=== PATIENT | male | born 1940 | race Caucasian/White ===

== ENCOUNTER 2018-12-17 18:41 | Inpatient (IN) | payer OTHER ==
[~2018-12-17] VITALS: Ht 180.3 cm; Wt 75.4 kg
[2018-12-17] MEDS ORDERED: FLOMAX0.4 MG PO (18:46)
[2018-12-17] MEDS ORDERED: TIMOLOL-BRIMONI-5 ML OPHTHALMIC (18:46)
[2018-12-17 20:22] LABS: HEMATOCRIT 43.2 % (42.0-52.0); HEMOGLOBIN 14.7 gm/dL (14.0-18.0); MCH 31.4 pg (26.0-34.0); MCHC 34.1 g/dL (28.0-37.0); MCV 92.2 fL (80.0-100.0); PLATELET COUNT 199 thou/uL (150-400); RBC 4.68 mil/uL (4.50-6.00); RDW 12.9 % (10.5-14.5)
[2018-12-17 20:27] LABS: CALCIUM 9.5 mg/dL (8.5-10.1); CREATININE 0.8 mg/dL (0.7-1.3); POTASSIUM 3.6 mmol/L (3.5-5.1)
[2018-12-17 20:34] LABS: ALBUMIN 3.5 g/dL (3.4-5.0); DIRECT BILIRUBIN 0.5 mg/dL (<0.1-0.3); TOTAL BILIRUBIN 1.6 mg/dL (<0.1-1.0); TOTAL PROTEIN 7.8 g/dL (6.4-8.2)
[2018-12-17 20:38] LABS: APTT 29.2 Seconds (24.5-32.8); PROTIME 10.5 Seconds (9.3-11.4)
[2018-12-17 21:03] LABS: ABSOLUTE NEUTROPHILS 4.6 thou/uL (1.4-8.2); ANISOCYTOSIS 1+
[2018-12-17 21:12] LABS: URINE CLARITY CLOUDY; URINE COLOR ORANGE
[2018-12-17 21:18] LABS: BACTERIA-REFLEX >30 Many /HPF (None Seen); CASTS None Seen /LPF (None Seen); CRYSTALS None Seen /LPF (None Seen); SQUAMOUS None Seen /LPF (0-3); URINE RBC 0-2 Rare /HPF (0-2); URINE WBC-REFLEX >25 Many /HPF (0-5); YEAST-REFLEX Present (None Seen)
[2018-12-17 22:42] VITALS: BP 119/81
[2018-12-17 23:00] VITALS: BP 142/87
[2018-12-18] VITALS (11 sets, daily range): BP systolic 131–156; BP diastolic 71–89
--- NOTE | 2018-12-18 03:22 | NUR ---
PT ARRIVED ON THE UNIT @2330 FROM THE ER. A&O X4 STATED HAVING BURNING WITH URINATION AND OLIGURIA. UP AD ARISTIDES TO THE BATHROOM. IV IN LFT WRIST INTACT FLUIDS AND ABX INFUSING. SCD'S ON BOTH LOWER EXT AND CALL LIGHT WITHIN REACH. PT NPO AFTER MIDNIGHT WILL CONT TO MONITOR TILL EOS.
--- NOTE | 2018-12-18 12:20 | NUR ---
ASSESSMENT-PT LIVES AT HOME WITH HIS WHO IS 76 YEARS OLD AND INDEPENDENT. BOTH DRIVE. THEY HAVE 3 KIDS, 2 ARE IN THE AREA AND THEY HAVE 9 GRANDKIDS. PT VOICES NO CONCERNS RELATED TO DC. GRANDKIDS ASSIST WITH SOME OF THE HOUSEHOLD DUTIES. PT SAYS THEY ARE VERY INDEPENDENT FOR THEIR AGE. FOLLOWING TO ASSIST WITH DC PLANNING.
--- NOTE | 2018-12-18 19:53 | NUR ---
Assumed care of pt at 0700. Pt a&ox4. IVF and antibiotics infusing. Pt went to IR for CT guided abscess drainage. Pt 2 hours bedrest after procedure. Pt got out of bed 1.5 hours after getting to floor. Bed alarm went off, when staff went in the room pt was up. Pt educated. SIMONE drain intact. Pain controlled. Vital signs stable. Family at bedside at the moment. Report given to tyree branch.
[2018-12-19 03:16] VITALS: BP 134/60
--- NOTE | 2018-12-19 06:21 | NUR ---
PT BEEN ALERT AND ORIENTED. UP AD ARISTIDES IN ROOM.AMBULATING TO THE BATHROOM. VSS.AFEBRILE. SIMONE DRAIN WITH ABOUT 10CC OF SANGUINEOUS OUTPUT. DENIES NAUSEA AND VOMITING. CONTINUES ON IV ABTS AND FLUIDS.NO FURTHER CONCERNS.
[2018-12-19 07:58] VITALS: BP 148/81
--- NOTE | 2018-12-19 12:30 | NUR ---
HAS BEEN UP IN ROOM, AMBULATORY, HE DID SHOWER AND STATED HE FEELS BETTER, ASKING WHAT HE HAS TO DO " A PATIENT" TO GET DISCHARGED, HE DENIES PAIN, HE IS ALERT AND ORIENTED X 4, SIMONE DRAIN IN PLACE, HAS SMALL AMOUNT OF SEROSANGUINOUS FLUID IN BULB. CONTINUE TO MONITOR FOR SAFETY.
[2018-12-19 17:08] VITALS: BP 121/65
--- NOTE | 2018-12-19 19:47 | NUR ---
Patient knocked IV out of wrist, new 20 ga. SL started in left hand, flushes well, x 1 stick. IV fluids and IVPB restarted at this time.
[2018-12-19 20:18] VITALS: BP 122/73
[2018-12-20 03:45] VITALS: BP 129/88; BP 135/6
--- NOTE | 2018-12-20 04:47 | HC ---
[facility] [place] [address] CONSULTATION Name: ANA GARCIA Room #: 426-P ADM IN M.R.#: [id number] Admission: 12/17/18 ������������������ Attend Phys: Peterson Eubanks MD Discharge: ������������������ Date of : 38 Report #: [id number] THIS REPORT FOR: //name// CC: [facility] physician/PCP Peterson Eubanks DATE OF SERVICE: 12/19/2018 INFECTIOUS DISEASE CONSULTATION ATTENDING PHYSICIAN: Dr. Eubanks. 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 HISTORY OF PRESENT ILLNESS: Chart reviewed, patient examined. This is a 78-year-old gentleman with little medical history who presented to the Emergency Room with complaints of burning upon urination and fevers. He noted in retrospect may have been ill over the past several weeks. He described more of an inflammation or irritation as opposed to true pain, did have some abnormalities with concomitant having urinating and bowel movements. Due to concerns about possible intra-abdominal process, did undergo imaging, which is suggestive of pericolonic abscess, probably on the base of diverticulitis with perforation as well as fistula formation consistent with colovesicular fistula. He was admitted, treated empirically with piperacillin and tazobactam. He did undergo percutaneous drainage 5 mL of hemorrhagic purulent material. He at this point still has only [id number]-lf-[id number] degree of pain and discomfort. He has not had nausea, emesis. He has generally had a reasonable appetite. No pulmonary-related complaints. ALLERGIES: None known. MEDICATIONS: Include Zosyn, p.r.n. analgesics and antiemetics. PAST MEDICAL HISTORY: Previous appendectomy, tonsillectomy, cholecystectomy, broken wrist with repair. SOCIAL HISTORY: Nonsmoker, no ethanol, no illicit drug use. FAMILY HISTORY: Noncontributory. REVIEW OF SYSTEMS: Otherwise, unremarkable 10-point review of systems with exception of the above history of present illness. PHYSICAL EXAMINATION: GENERAL: He is alert, cooperative, appropriate. He is not encephalopathic, [facility] [address] [place] [address] CONSULTATION Name: ANA GARCIA Room #: 426-[facility] IN ..#: [id number] Admission: 12/17/18 ������������������ Attend Phys: Peterson Eubanks MD Discharge: ������������������ Date of : 39 Report #: [id number] distress, reasonably well nourished. VITAL SIGNS: Temperature 99.3, pulse 70, respirations 16, blood pressure 134/60. SKIN: Warm, dry, no rashes. HEENT: Normocephalic. Extraocular muscles intact. NECK: Supple. LUNGS: Generally clear to auscultation. HEART: Regular. I do not appreciate murmur. ABDOMEN: Soft, nontender. It is in the suprapubic area has the percutaneous drainage catheter. There is no cellulitic process noted. EXTREMITIES: Distal lower extremities were unremarkable. LABORATORY DATA: Electrolytes: Sodium 132, potassium 3.6, chloride 98, bicarbonate is 20, anion gap of 14, BUN and creatinine 16 and 0.8, glucose of 97. AST of 70, ALT of 70, total bilirubin of 1.6, albumin 3.5, total protein 7.8, estimated GFR of 93. Lactic acid of 1.0. PT of 10.5, INR 1.0. CBC: White count of 6.0, H and H 14.7, 43.2, platelets of 199. Urinalysis showed greater than 25 white cells, greater than 30 bacteria, yeast present. ASSESSMENT: Diverticular abscess with a colovesicular fistula, status post percutaneous drainage. We will continue empiric therapy with piperacillin and tazobactam. This gives us good coverage. Did note some yeast on the urinalysis may well have a complicated UTI as well. We need to add antifungal, see how he does clinically. At this point, he is not overtly toxic, monitor expectantly. ��������������������������������������������� <ELECTRONICALLY SIGNED> ���������������������������������������� By: Michele Torres MD ��������������������������������������������� 12/20/18 0447 [id number] [id number] Michele Torres MD /nt
--- NOTE | 2018-12-20 07:34 | NUR ---
PATIENT ALERT AND ORIENTED X4 UP ADLIB IN ROOM. IVF INFUSING W/O COMPLICATION. DENIES PAIN. SIMONE TO SUCTION WITH SANGUINOUS DRAINAGE. WILL MONITOR.
[2018-12-20 09:20] VITALS: BP 150/84
--- NOTE | 2018-12-20 10:54 | NUR ---
ASSUMED CARE AT 0700, SHIFT ASSESSMENT DONE, MEDS GIVEN, VSS. DENIES ANY PAIN, NAUSEA, VOMITING. UP AD ARISTIDES. WILL CONTINUE TO ASSESS AND ASSIST WITH ADLs NEEDED
[2018-12-20 14:32] VITALS: BP 132/73
[2018-12-20 20:22] VITALS: BP 138/70
[2018-12-21 03:29] VITALS: BP 136/63
--- NOTE | 2018-12-21 04:45 | NUR ---
ASSUMED CARE OF PT @1900 PT ASSESSED AT START OF SHIFT A&OX4 UP AD ARISTIDES TO THE BATHROOM. IV INTACT ON LFT HAND. FLUIDS AND ABX INFUSING. MATTI DRAIN INTACT AND SANGUINOUS DRAINAGE NOTED. WILL CONT TO MONITOR TILL EOS.
[2018-12-21 07:30] VITALS: BP 157/77
[2018-12-21 10:06] LABS: HEMATOCRIT 41.5 % (42.0-52.0); HEMOGLOBIN 14.1 gm/dL (14.0-18.0); MCH 30.8 pg (26.0-34.0); MCV 90.7 fL (80.0-100.0); RBC 4.58 mil/uL (4.50-6.00); RDW 12.8 % (10.5-14.5); WBC 5.4 thou/uL (4.0-11.0)
[2018-12-21 10:16] LABS: ALBUMIN 3.2 g/dL (3.4-5.0); CALCIUM 9.1 mg/dL (8.5-10.1); CREATININE 0.7 mg/dL (0.7-1.3); MAGNESIUM 1.9 mg/dL (1.8-2.4); POTASSIUM 3.5 mmol/L (3.5-5.1); TOTAL BILIRUBIN 0.6 mg/dL (<0.1-1.0); TOTAL PROTEIN 7.3 g/dL (6.4-8.2)
[2018-12-21] MEDS ORDERED: ACIDOPHILUS1 EAC4 PO (14:28)
[2018-12-21] MEDS ORDERED: CIPRO500 MG PO (14:28)
[2018-12-21] MEDS ORDERED: FLAGYL500 M1 PO (14:28)
[2018-12-21 16:22] VITALS: BP 157/77
--- NOTE | 2018-12-21 20:28 | NUR ---
PATIENT ALERT AND ORIENTED AND COOPERATIVE WITH POC. PATIENT DISCHARGED TO HOME WITH SPOUSE IN STABLE CONDITION WITH DISCHARGE ORDERS AND INSTRUCTIONS AND PRESCRIPTIONS VIA WHEELCHAIR AND WITH SPOUSE IN PERSONAL VEHICLE. PATIENT GIVEN ALL PERSONAL BELONGINGS.
== END 2018-12-21 17:07 | disposition home or self-care (01) | DRG 871 ==
LOC: ER 18:41 → 4E 21:36 → EROBS 21:36 → 4E 23:14
PROVIDERS: Emergency Medicine; ADMIT Internal Medicine
PROC: 0W9G30Z Drainage of Peritoneal Cavity with Drainage Device, Percutaneous Approach (ICD-10-PCS; principal; 2018-12-18)
DX: A41.9 Sepsis, unspecified organism (principal); K65.1 Peritoneal abscess; N32.1 Vesicointestinal fistula; K63.2 Fistula of intestine; N39.0 Urinary tract infection, site not specified; E87.2 Acidosis; K57.80 Diverticulitis of intestine, part unspecified, with perforation and abscess without bleeding; N40.0 Benign prostatic hyperplasia without lower urinary tract symptoms; K21.9 Gastro-esophageal reflux disease without esophagitis; H40.9 Unspecified glaucoma; B96.1 Klebsiella pneumoniae [K. pneumoniae] as the cause of diseases classified elsewhere; Z86.010 Personal history of colon polyps; Z79.899 Other long term (current) drug therapy; Z90.89 Acquired absence of other organs; Z90.49 Acquired absence of other specified parts of digestive tract; Z80.0 Family history of malignant neoplasm of digestive organs; Z87.891 Personal history of nicotine dependence; Z82.5 Family history of asthma and other chronic lower respiratory diseases; Z80.8 Family history of malignant neoplasm of other organs or systems
CPT/HCPCS: 10084

== ENCOUNTER 2018-12-23 17:10 | Emergency (ER) | payer OTHER ==
[~2018-12-23] VITALS: Ht 180.3 cm; Wt 78.0 kg
[~2018-12-23 17:10] MED LIST: ACIDOPHILUS1 EAC4 PO; CIPRO500 MG PO; FLAGYL500 M1 PO; FLOMAX0.4 MG PO; TIMOLOL-BRIMONI-5 ML OPHTHALMIC
[2018-12-23 17:39] LABS: ABSOLUTE NEUTROPHILS 11.1 thou/uL (1.4-8.2); BASOPHILS 0.6 % (0.0-2.0); HEMATOCRIT 40.2 % (42.0-52.0); LYMPHOCYTES 16.8 % (24.0-44.0); MCH 30.2 pg (26.0-34.0); MCHC 32.5 g/dL (28.0-37.0); MCV 92.9 fL (80.0-100.0); MONOCYTES 5.7 % (1.0-8.0); POLYS 75.9 % (36.0-66.0); RBC 4.32 mil/uL (4.50-6.00); RDW 13.3 % (10.5-14.5); WBC 14.6 thou/uL (4.0-11.0)
[2018-12-23 17:40] LABS: PLATELET COUNT 470 thou/uL (150-400)
[2018-12-23 17:47] LABS: CALCIUM 9.8 mg/dL (8.5-10.1); CREATININE 1.2 mg/dL (0.7-1.3)
[2018-12-23 17:50] LABS: APTT 23.9 Seconds (24.5-32.8); INR 1.1; PROTIME 11.7 Seconds (9.3-11.4)
[2018-12-23 17:53] LABS: ALBUMIN 3.4 g/dL (3.4-5.0); TOTAL BILIRUBIN 0.7 mg/dL (<0.1-1.0); TOTAL PROTEIN 7.2 g/dL (6.4-8.2)
[2018-12-23] MEDS ORDERED: AUGMENTIN 875-1 EACH PO (20:14)
[2018-12-23] MEDS ORDERED: ONDANSETRON HCL4 M2 PO (20:15)
[2018-12-23 21:06] VITALS: BP 120/74
== END 2018-12-23 21:10 | disposition home or self-care (01) ==
LOC: ER 17:10
PROVIDERS: Emergency Medicine
DX: K62.5 Hemorrhage of anus and rectum (principal); R42 Dizziness and giddiness; R19.7 Diarrhea, unspecified; R55 Syncope and collapse; Z90.49 Acquired absence of other specified parts of digestive tract; K21.9 Gastro-esophageal reflux disease without esophagitis; Z90.89 Acquired absence of other organs; Z98.890 Other specified postprocedural states; N40.0 Benign prostatic hyperplasia without lower urinary tract symptoms; Z87.891 Personal history of nicotine dependence

== ENCOUNTER → 2019-02-04 | Outpatient (CLI) | payer OTHER ==
[~2019-02-04] VITALS: Ht 182.9 cm; Wt 78.9 kg
[~2019-02-04] MED LIST changes: +AUGMENTIN 875-1 EACH PO; +DUREZOL5 ML OPHTHALMIC; +NIACIN250 MG PO; +OMEPRAZOLE40 MG PO; +ONDANSETRON HCL4 M2 PO; +TURMERIC500 M2 PO; +VITAMIN B-6100 MG PO; +VITAMIN C500 M1 PO
--- NOTE | 2019-02-05 16:06 | PATH ---
[facility] [address] [place] [address] PATHOLOGY RPT PROCEDURE Name: ZAHRA GARCIA Room #: [facility] Lula.#: [id number] Admission: 02/04/19 Date of : 38 Discharge: Report #: [id number] Path Case #: [id number] [facility] Accession Number: [id number] . 01 Material submitted: . colon - POLYP AT PROXIMAL ASCENDING COLON. Modifiers: proximal, ascending . 01 Clinical history: . Pre-OP DX: Diverticulitis Post-OP DX: Colon polyp and diverticulosis . 02 Diagnosis: Polyp, at proximal ascending colon, endoscopic biopsy: - Minute tubular adenoma overlying a lymphoid aggregate. - Negative for high grade dysplasia. . (IUV:mml; 02/05/2019) QLM 02/05/2019 1359 Local . 02 Electronically signed: . Izabela Noble MD, Pathologist NPI- [id number] . 01 Gross description: . Received in formalin labeled "Zahra Garcia Jr, polyp at proximal ascending colon," are 2 segments of lee soft tissue measuring 0.6 x 0.2 x 0.1 cm in aggregate dimensions and ranging from 0.2 to 0.4 cm in maximum dimension. The specimen is submitted entirely in cassette A1. (TSD; 02/04/2019) TOB/TOB 02/04/2019 1837 Local . 02 Pathologist provided ICD-10: D12.2 . 02 CPT . 901897 Specimen Comment: A courtesy copy of this report has been sent to Specimen Comment: [phone]. Specimen Comment: Report sent to Performed at: [address], [place] [id number] MD Guido Soto MD Phone: [phone] Performed at: [address] [id number] MD Izabela Noble MD Phone: [phone]
--- NOTE | 2019-02-06 14:09 | P ---
[facility] [place] [address] [address] PROCEDURE REPORT Name: ANA GARCIA JR Room #: REG [facility]#: [id number] Admission: 02/04/19 Attend Phys: Rocco Amado MD Discharge: Date of : 39 Report #: [id number] THIS REPORT FOR: //name// CC: Benedicto Amado Physician staff DATE OF SERVICE: 02/04/2019 BRIEF HISTORY: The patient is a 78-year-old male with recent abnormal CT of the colon with evidence of a colovesical fistula. A neoplasm could not be excluded. PREOPERATIVE DIAGNOSIS: Abnormal CT of colon. POSTOPERATIVE DIAGNOSES: 1. Moderate sigmoid diverticulosis coli with few scattered diverticula in proximal colon. 2. Diminutive proximal ascending colon polyp. MEDICATIONS: Deep sedation with propofol per Anesthesia. SPECIMEN: Proximal ascending colon polyp. ESTIMATED BLOOD LOSS: 3 mL. PROCEDURE: Colonoscopy to cecum and terminal ileum with biopsy. FINDINGS: Prior to propofol sedation, procedure of colonoscopy discussed with the patient as well as potential risks and its complications. He indicates he understands and desires to proceed. DESCRIPTION OF PROCEDURE: With the patient in left lateral decubitus position, digital examination was completed, which revealed no abnormalities. Subsequently, an Olympus video colonoscope was introduced in the rectum, advanced under direct vision to the cecum. It was done with minimal difficulty. The cecum was identified by the ileocecal valve and the appendiceal orifice. I was able to advance the scope into the distal segment of the terminal ileum, which was inspected and noted to be unremarkable. At that point, the scope was slowly withdrawn and careful circumferential views obtained. Upon slow withdrawal of the scope, the prep was good. The mucosa was within normal limits, normal vascular pattern, normal light reflex. In the proximal ascending colon, a diminutive polyp was seen and removed with biopsy forceps. As we [facility] [address] [place] [address] PROCEDURE REPORT Name: ANA GARCIA JR Room #: REG [facility]#: [id number] Admission: 02/04/19 Attend Phys: Rocco Amado MD Discharge: Date of : 39 Report #: [id number] withdrew the scope further, no additional neoplastic lesions were seen. An occasional diverticulum was seen in the proximal colon without endoscopic evidence of diverticulitis. As the scope was withdrawn in the left colon, there were scattered diverticula, mostly in the sigmoid colon without endoscopic evidence of diverticulitis. This diverticular disease was moderate. Extremely large-mouth diverticula were not seen. I could not recognize signs of a colovesical fistula. In addition, there was no evidence of a neoplastic process in the sigmoid colon or anywhere else in the colon for that matter. The scope was withdrawn in the rectum and no abnormalities were seen. Upon retroflexion, no abnormalities were seen. Scope was withdrawn. The patient tolerated the procedure well. CONDITION OF THE PATIENT UPON DISCHARGE: Following procedure, the patient drowsy, aroused, conversant and will be discharged home when fully ambulatory. INSTRUCTIONS TO THE PATIENT AND FAMILY AT THE TIME OF DISCHARGE: One diminutive polyp identified and removed as noted above. As for the abnormal CT and recent episodes of diverticulitis with abscess and colovesical fistula, no neoplastic processes were seen in the colon. He is scheduled to see Dr. Benedicto Gallagher next week to discuss plans for surgery regarding his complicated diverticulitis. <ELECTRONICALLY SIGNED> By: Rocco Amado MD 02/06/19 1409 [id number] Rocco Amado MD /nt
== END | disposition home or self-care (01) ==
LOC: GI
DX: R93.3 Abnormal findings on diagnostic imaging of other parts of digestive tract (principal); D12.2 Benign neoplasm of ascending colon; K57.30 Diverticulosis of large intestine without perforation or abscess without bleeding; I10 Essential (primary) hypertension; K21.9 Gastro-esophageal reflux disease without esophagitis; H40.9 Unspecified glaucoma; N40.0 Benign prostatic hyperplasia without lower urinary tract symptoms; Z90.49 Acquired absence of other specified parts of digestive tract; Z98.42 Cataract extraction status, left eye; Z87.891 Personal history of nicotine dependence; Z98.890 Other specified postprocedural states; Z79.899 Other long term (current) drug therapy
CPT/HCPCS: 62110; 62900

== ENCOUNTER 2020-03-28 14:46 | Inpatient (IN) | payer OTHER ==
[~2020-03-28] VITALS: Ht 180.3 cm; Wt 77.1 kg
[2020-03-28 14:58] VITALS: BP 148/97
[2020-03-28 17:11] LABS: ABSOLUTE NEUTROPHILS 6.9 thou/uL (1.4-8.2); BASOPHILS 0.5 % (0.0-2.0); EOSINOPHILS 0.7 % (0.0-3.0); HEMATOCRIT 39.1 % (42.0-52.0); LYMPHOCYTES 13.7 % (24.0-44.0); MCH 30.2 pg (26.0-34.0); MCHC 33.3 g/dL (28.0-37.0); MCV 90.7 fL (80.0-100.0); MONOCYTES 8.2 % (1.0-8.0); PLATELET COUNT 183 thou/uL (150-400); POLYS 76.9 % (36.0-66.0); RBC 4.31 mil/uL (4.50-6.00); RDW 14.4 % (10.5-14.5)
[2020-03-28 17:27] LABS: CALCIUM 9.2 mg/dL (8.5-10.1); CREATININE 0.7 mg/dL (0.7-1.3); POTASSIUM 3.9 mmol/L (3.5-5.1)
[2020-03-28 17:54] LABS: APTT 24.7 Seconds (24.5-32.8); INR 1.1; PROTIME 10.9 Seconds (9.3-11.4)
[2020-03-28 20:27] VITALS: BP 132/78
[2020-03-28 20:38] VITALS: BP 130/72
[2020-03-28 20:45] VITALS: BP 135/94
--- NOTE | 2020-03-28 23:50 | NUR ---
PT ADMITTED TO THE UNIT AT APPROXIMATELY 2100. PT IS A/O X4 AND UP AD ARISTIDES WITH A CANE. PT IS ON ROOM AIR. DIET ORDER AT MIDNIGHT IS NPO. DENIES ANY PAIN OR DISCOMFORT AT THIS TIME. GLUTEAL HEMATOMA LEFT OPEN TO AIR. NO DRAINAGE NOTED. ADMISSION COMPLETED. PT AT THIS TIME IS LYING IN HIS BED AND APPEARS TO BE SLEEPING. WILL CONTINUE TO MONITOR.
[2020-03-29 06:28] LABS: HEMATOCRIT 36.8 % (42.0-52.0); HEMOGLOBIN 12.2 gm/dL (14.0-18.0); MCH 30.3 pg (26.0-34.0); MCHC 33.2 g/dL (28.0-37.0); MCV 91.3 fL (80.0-100.0); RBC 4.03 mil/uL (4.50-6.00); RDW 14.8 % (10.5-14.5); WBC 6.7 thou/uL (4.0-11.0)
--- NOTE | 2020-03-29 07:27 | EKG ---
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: EMILY : 1940 Requested By: Chris Aj Order Number: [id number] MD: Bo Marroquin Measurements Intervals [place] Rate: 72 P: 11 MD: 220 QRS: -12 QRSD: 74 T: QT: 387 QTc: 424 Interpretive Statements Sinus rhythm Ventricular trigeminy Prolonged MD interval LVH by voltage Borderline T abnormalities, diffuse leads No previous ECG available for comparison Electronically Signed On 03-29-2020 7:26:49 [employer]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
[2020-03-29 07:40] VITALS: BP 119/74
[2020-03-29] MEDS ORDERED: CYTOMEL 5MCG TA5 MCG PO (09:08)
--- NOTE | 2020-03-29 10:25 | NUR ---
ORDERS FOR EVAL AND TREAT. Pt IS UP AD ARISTIDES IN ROOM. OBSERVED Pt STAND AND AMBULATE WITHOUT DIFFICULTY. Pt IS DECLINING A FORMAL P.T. EVAL BUT APPEARS SAFE FOR HOME WHEN MEDICALLY CLEAR
--- NOTE | 2020-03-29 12:50 | NUR ---
ASSESSMENT: CM REVIEWED CHART AND MET WITH PT. PT IS ALERT AND ORIENTED X4. PT WAS ADMITTED DUE TO GLUTEAL HEMATOMA. PT RESIDES AT HOME WITH HIS . PT REPORTS ABOUT 2 STEPS TO ENTER THE HOME AND STATES HE HAS MULTIPLE LEVELS WITH 7 STEPS AND HANDRAILS ON EACH LEVEL. PT STATES HE IS VERY INDEPENDENT WITH ADLS AND AMBULATION. PT REPORTS AMBULATING INDEPENDENTLY BUT REPORTS SHE DOES OCCASIONALLY USE A CANE. PT REPORTS HE HAS HAD NO HX OF HH OR SNF. CM DISCUSSED ROLE. IR IS CONSULTED TO SEE PATIENT. CM WILL CONTINUE TO FOLLOW TO ASSIST NEEDED.
--- NOTE | 2020-03-29 14:39 | NUR ---
PT CARE ASSUMED AT 0700. A&Ox4. PT UP AT ARISTIDES IN ROOM. NOT COMPLAINING OF ANY PAIN. IV PATENT WITH NO REDNESS OR EDEMA, FLUIDS INFUSING. PT CONSULTED BY DR. LAU AND RECOMMENDED TO DISCHARGE TO HOME AND FOLLOW UP IF THE HEMATOMA IS STILL PRESENT IN THREE WEEKS. CLEARED TO DC. IV REMOVED AND DISCHARGED PATIENT WITH NO FURTHER QUESTIONS.
[2020-03-29 14:49] VITALS: BP 119/74
== END 2020-03-29 15:14 | disposition home or self-care (01) | DRG 605 ==
LOC: ER 14:46 → EROBS 20:02 → 4S 20:02
PROVIDERS: Emergency Medicine; Nurse Practitioner Family; ADMIT Internal Medicine; ATTEND Internal Medicine
DX: S70.02XA Contusion of left hip, initial encounter (principal); S30.0XXA Contusion of lower back and pelvis, initial encounter; N40.0 Benign prostatic hyperplasia without lower urinary tract symptoms; G89.29 Other chronic pain; M54.9 Dorsalgia, unspecified; K21.9 Gastro-esophageal reflux disease without esophagitis; W22.8XXA Striking against or struck by other objects, initial encounter; Z20.828 Contact with and (suspected) exposure to other viral communicable diseases; Y93.89 Activity, other specified; Y92.89 Other specified places as the place of occurrence of the external cause; Y99.8 Other external cause status; Z90.49 Acquired absence of other specified parts of digestive tract; Z98.42 Cataract extraction status, left eye; Z79.899 Other long term (current) drug therapy; Z87.891 Personal history of nicotine dependence; Z28.21 Immunization not carried out because of patient refusal
CPT/HCPCS: 10195

== ENCOUNTER 2020-10-05 12:14 | Inpatient (IN) | payer OTHER ==
[~2020-10-05] VITALS: Ht 180.3 cm; Wt 78.9 kg
[~2020-10-05 12:14] MED LIST changes: +CYTOMEL 5MCG TA5 MCG PO
[2020-10-05 12:25] VITALS: BP 161/76
[2020-10-05] MEDS ORDERED: CEPHALEXIN500 MG PO (12:30)
[2020-10-05 12:56] LABS: HEMATOCRIT 36.3 % (42.0-52.0); HEMOGLOBIN 12.4 gm/dL (14.0-18.0); MCH 33.3 pg (26.0-34.0); MCHC 34.2 g/dL (28.0-37.0); MCV 97.3 fL (80.0-100.0); RBC 3.74 mil/uL (4.50-6.00); RDW 13.7 % (10.5-14.5); WBC 6.9 thou/uL (4.0-11.0)
[2020-10-05 13:04] LABS: CALCIUM 9.2 mg/dL (8.5-10.1); CREATININE 0.8 mg/dL (0.7-1.3)
[2020-10-05 13:10] LABS: ALBUMIN 3.7 g/dL (3.4-5.0); TOTAL BILIRUBIN 1.7 mg/dL (0.2-1.0); TOTAL PROTEIN 7.5 g/dL (6.4-8.2)
[2020-10-05 15:23] VITALS: BP 161/76
[2020-10-05 16:15] VITALS: BP 163/74
[2020-10-05 16:23] LABS: FOLIC ACID 14.1 ng/mL (8.6-58.9)
[2020-10-05] MEDS ORDERED: LATANOPROST 0.2.5 ML EA. EYE (16:55)
[2020-10-05] MEDS ORDERED: COMBIGAN EYE DR10 ML EA. EYE (16:57)
[2020-10-05] MEDS ORDERED: DORZOLAMIDE-TI1 EACH EA. EYE (17:03)
[2020-10-05 17:24] VITALS: BP 133/80
[2020-10-05 20:19] VITALS: BP 128/72
--- NOTE | 2020-10-06 02:23 | NUR ---
ASSESSED AT START OF SHIFT 1900. PT A&OX4 DENIES PAIN, N/V. IV INTACT AND VANCOMYCIN INFUSING. CELLULITIS ON LEFT KNEE NOTED WARM TO TOUCH. URINAL BY BEDSIDE. ANAHI LOWER EXT ELEVATED AND PLACED ON PILLOW. FALL PREC IN PLACE AND CALL LIGHT AT REACH WILL CONT TO MONITOR.
[2020-10-06 03:28] LABS: ABSOLUTE NEUTROPHILS 4.2 thou/uL (1.4-8.2); BASOPHILS 0.5 % (0.0-2.0); EOSINOPHILS 3.2 % (0.0-3.0); HEMATOCRIT 33.9 % (42.0-52.0); HEMOGLOBIN 11.5 gm/dL (14.0-18.0); LYMPHOCYTES 16.5 % (24.0-44.0); MCH 33.2 pg (26.0-34.0); MCV 97.7 fL (80.0-100.0); MONOCYTES 12.3 % (1.0-8.0); PLATELET COUNT 191 thou/uL (150-400); POLYS 67.5 % (36.0-66.0); RBC 3.47 mil/uL (4.50-6.00); RDW 13.6 % (10.5-14.5); WBC 6.2 thou/uL (4.0-11.0)
[2020-10-06 03:35] LABS: CALCIUM 8.8 mg/dL (8.5-10.1); CREATININE 0.8 mg/dL (0.7-1.3); POTASSIUM 3.9 mmol/L (3.5-5.1)
[2020-10-06 08:01] VITALS: BP 120/66
--- NOTE | 2020-10-06 11:01 | NUR ---
ORDERS RECEIVED, CHART REVIEWED. PATIENT DECLINES FORMAL OT EVAL HE HAS BEEN MOBILIZING WELL AND FOUND COMPENSATORY STRATEGY FOR LOWER BODY DRESSING. DECLINES A.E. EDUCATION AND ANY SELF CARE DEFICITS. ACUTE OT TO SIGN OFF. PLEASE RECONSULT IF NEEDED/FUNCTIONAL STATUS CHANGES.
--- NOTE | 2020-10-06 15:32 | NUR ---
ASSESSMENT: CM REVIEWED CHART AND SPOKE WITH PATIENT. PT IS ALERT AND ORIENTED X4. PT IS ADMITTED DUE TO CELLULITIS OF LOWER EXTREMITY. PT REPORTS THAT HE LIVES IN A HOUSE WITH HIS THAT HAS MULTIPLE STEPS. PT REPORTS ABOUT 7 WITH HANDRAIL TO ENTER AND ABOUT 28 WITH HANDRAILS INSIDE. PT REPORTS HAVING A CANE. CM DISCUSSED ROLE. PT REPORTS HE DOES NOT ANTICIPATE ANY NEEDS FROM CM. CM WILL CONTINUE TO FOLLOW. PT REMAINS ON IV ANBX.
[2020-10-06 16:45] VITALS: BP 136/77
--- NOTE | 2020-10-06 18:46 | NUR ---
Patient alert and orinted x4, on room air, up with PT today cleared to walk ad janeen, denies any pain, vital signs stable, and afbriele. Call light with in reach, will continue to monitor.
[2020-10-06 20:20] VITALS: BP 120/64
--- NOTE | 2020-10-07 03:06 | NUR ---
ASSESSED AT START OF SHIFT. PT RESTING IN BED WITH LOWER EXT ELEVATED. IV INTACT AND ABX GIVEN. PT DENEIES N/V. TYELNOL GIVEN FOR PAIN. PT UP AD ARISTIDES TO THE BATHROOM. CLEARED BY PHYSICAL THERAPY. ENCORAGED PT TO CALL FOR ANY ASSISTANCE. CALL LIGHT AT REACH AND WILL CONT TO MONITOR.
[2020-10-07 04:00] VITALS: BP 136/79
[2020-10-07 07:20] VITALS: BP 114/66
[2020-10-07 16:05] VITALS: BP 141/85
--- NOTE | 2020-10-07 16:28 | NUR ---
Patient alert and orinted x4, on room air, up ad janeen, devendra wrap applied to right knee, denies pain medication, vitals stable, and afbriele. Call light with in reach, will continue to monitor.
[2020-10-07 20:00] VITALS: BP 129/75
--- NOTE | 2020-10-08 03:28 | NUR ---
RECEIVED CARE OF THIS PATIENT AT 1900. PATIENT ALERT AND ORIENTED X4. PATIENT WAS CLEARED BY PT TO BE UP AD ARISTIDES EVEN WITH A HIGH FALL RISK SCORE. L LEG EDEMATOUS, RED AND WARM TO TOUCH. ELEVATED. GAVE PATIENT INFORMATION ON CELLULITIS. C/O MILD PAIN AND DID NOT WANT MED. SLEPT OFF AND ON THIS SHIFT.
[2020-10-08 07:20] VITALS: BP 133/77
[2020-10-08] MEDS ORDERED: DOXYCYCLINE 10100 M2 PO (11:13)
--- NOTE | 2020-10-08 13:51 | NUR ---
PT ASSESSED AT START OF SHIFT. FEELING BETTER AND PLANNING ON DISCHARGE TODAY. DR. SUAREZ IN TO SEE PT AND WILL DISCHARGE THIS AFTERNOON AFTER IV ANTIBIOTIC INFUSED. NO C/O PAIN. LT LOWER LEG REDDNESS MUCH IMPROVED AND KNEE SWELLING DONE.
[2020-10-08 13:57] VITALS: BP 133/77
== END 2020-10-08 16:00 | disposition home or self-care (01) | DRG 603 ==
LOC: ER 12:14 → 4S 15:02 → EROBS 15:02 → 4S 15:55
PROVIDERS: Nurse Practitioner; Nurse Practitioner Family; ADMIT Internal Medicine; ATTEND Internal Medicine
DX: L03.116 Cellulitis of left lower limb (principal); N40.0 Benign prostatic hyperplasia without lower urinary tract symptoms; K21.9 Gastro-esophageal reflux disease without esophagitis; S70.12XA Contusion of left thigh, initial encounter; M25.462 Effusion, left knee; W18.39XA Other fall on same level, initial encounter; Z90.49 Acquired absence of other specified parts of digestive tract; Z98.42 Cataract extraction status, left eye; Z79.899 Other long term (current) drug therapy; Y93.89 Activity, other specified; Y92.89 Other specified places as the place of occurrence of the external cause; Y99.8 Other external cause status
CPT/HCPCS: 10102